=== PATIENT | male | born 1985 | race Caucasian/White ===

== ENCOUNTER 2017-11-04 20:44 | Emergency (ER) | payer OTHER ==
--- NOTE | 2017-11-04 20:50 | PDOC ---
Rapid Medical Evaluation Time Seen by Provider: 11/04/17 20:49 Medical Evaluation: 11/04/17 20:49 I have performed a brief in-person evaluation of this patient. The patient presents with a chief complaint of laceration to right thumb today. Patient reports cutting finger while opening a can today. td 15 years ago Pertinent physical exam findings: NAD even and unlabored breathing right thumb with laceration on palmar aspect of finger I have ordered the following: td ordered The patient will proceed to the Ed for further evaluation.
[2017-11-04] MEDS ORDERED: DIPHTH,PERTUSS(ACELL),TET 0.5 ML DISP.SYRIN IM ONE (20:51)
[2017-11-04 21:08] VITALS: BP 140/71; PULSE 74; TEMP 98.2; BMI 19.3
--- NOTE | 2017-11-04 22:15 | PDOC ---
History of Present Illness - General Chief Complaint: Injury Stated Complaint: LACERATION Time Seen by Provider: 11/04/17 20:49 History Source: Patient Exam Limitations: No Limitations - History of Present Illness Initial Comments: 11/04/17 21:43 HISTORY OF PRESENT ILLNESS: 31-year-old male without significant medical history who presents emergency Department with laceration to right thumb while opening up a can of tunafish today. Patient denies numbness or tingling to his thumb, difficulty moving finger or pain. Patient states he is right-hand dominant and works as a kitchen bath designer. Patient does not murmur in his last tetanus shot was but believes it was approximately 14 years ago. No recent travel or sick contacts. PAST MEDICAL HISTORY: Denies past medical history SURGICAL HISTORY: Denies ALLERGIES: No known drug allergies REVIEW OF SYSTEMS General/Constitutional: Denies fever or chills. Denies weakness, weight change. HEENT: Denies change in vision. Denies ear pain or discharge. Denies sore throat. Cardiovascular: Denies chest pain or shortness of breath. Respiratory: Denies cough, wheezing, or hemoptysis. Gastrointestinal: Denies nausea, vomiting, diarrhea or constipation. Denies rectal bleeding. Genitourinary: Denies dysuria, frequency, or change in urination. Musculoskeletal: Denies joint or muscle swelling or pain. Denies neck or back pain. Skin and breasts: Laceration to right thumb. Neurologic: Denies headache, vertigo, loss of consciousness, or loss of sensation. Psychiatric: Denies depression or anxiety. Endocrine: Denies increased thirst. Denies abnormal weight change. Hematologic/Lymphatic: Denies anemia, easy bleeding, or history of blood clots. Allergic/Immunologic: Denies hives or skin allergy. Denies latex allergy. PHYSICAL EXAM General Appearance: Well-appearing, appropriately dressed. No apparent distress , no intoxication. HEENT: EOMI, PERRLA, normal ENT inspection, normal voice, TMs normal, pharynx normal. No conjunctival pallor. No photophobia, scleral icterus. Neck: Supple. Trachea midline. No tenderness, rigidity, carotid bruit, stridor , lymphadenopathy, or thyromegaly. Respiratory/Chest: Lungs CTAB. No shortness of breath, chest tenderness, respiratory distress, accessory muscle use. No crackles, rales, rhonchi, stridor , wheezing, dullness Cardiovascular: RRR. S1, S2. No JVD, murmur, bradycardia, tachycardia. Vascular Pulses: Dorsalis-Pedis (R): 2+, Dorsalis-Pedis (L): 2+ Gastrointestinal/Abdominal: Normal bowel sounds. Abdomen soft, non-distended. No tenderness or rebound tenderness. No organomegaly, pulsatile mass, guarding, hernia, hepatomegaly, splenomegaly. Lymphatic: No adenopathy, tenderness. Musculoskeletal/Extremities: Normal inspection. FROM of all extremities, normal capillary refill. Pelvis Stable. No CVA tenderness. No tenderness to extremities, pedal edema, swelling, erythema or deformity. Integumentary: Appropriate color, dry, warm. No cyanosis, erythema, jaundice or rash. 2.7cm flap laceration to volar aspect of right thumb over distal phalanx. Bleeding controlled. Neurologic: dust mixer II-XII intact. Fully oriented, alert. Appropriate mood/affect. Motor strength 5/5. No appreciable EOM palsy, facial droop or sensory deficit. Past History - Past Medical History Allergies/Adverse Reactions: Allergies Allergy/AdvReac Type Severity Reaction Status Date / Time No Known Allergies Allergy Verified 11/04/17 20:51 Home Medications: Ambulatory Orders NK [No Known Home Medication] 11/04/17 COPD: No - Immunization History Td Vaccination: No - Suicide/Smoking/Psychosocial Hx Smoking History: Never smoked *Physical Exam - Vital Signs Last Vital Signs Temp Pulse Resp BP Pulse Ox 98.2 F 74 18 140/71 100 11/04/17 20:49 11/04/17 20:49 11/04/17 20:49 11/04/17 20:49 11/04/17 20:49 Procedures - Consent Consent obtained: Verbal, From Patient - Laceration/Wound Repair Right Volar Finger 1st digit Wound Length: 2.6 to 5.0 cm Wound Explored: clean Wound's Depth, Shape: flap Irrigated w/ Saline: Yes Betadine Prep: Yes Anesthesia: 1% Lidocaine Amount of Anesthetic (ccs): 4 Wound Debrided: minimal Wound Repaired With: Sutures Suture Size/Type: 5:0, nylon Number of Sutures: 5 Layer Closure: No Sterile Dressing Applied: Yes Splint Applied: No Sling Applied: No Progress: 11/04/17 22:16 Pt tolerated well ED Treatment Course - Medications Given in the ED: ED Medications Discontinued Medications Generic Name Dose Route Start Last Admin Trade Name Evangelista PRN Reason Stop Dose Admin Diphtheria/Tetanus/Acell Pertussis 0.5 ml 11/04/17 20:51 11/04/17 21:21 Boostrix - IM 11/04/17 20:52 0.5 ml .ONCE ONE Administration Medical Decision Making - Medical Decision Making 11/04/17 22:17 A/P: 31-year-old male with laceration sustained to the on the Patient is right-hand dominant Approximate 2.7 cm flap laceration present to the volar aspect of the right thumb over the distal phalanx No obvious tissue loss Full flexion and extension of IPJ against resistance Full sensation present distal to injury Cap refill <2 seconds Laceration repair- see procedure note for details Td D/c *DC/Admit/Observation/Transfer Diagnosis at time of Disposition: Laceration - Discharge Dispostion Disposition: HOME Condition at time of disposition: Stable Decision to Admit order: No - Referrals - Patient Instructions Printed Discharge Instructions: DI for Laceration Repair Additional Instructions: Keep wound clean and dry Avoid strenuous activity/exercise to create a hot or sweaty environment until sutures are removed Reapply bacitracin ointment 2 times a day until sutures are removed Return to emergency Department or private physician in 7-10 days for suture removal May use Tylenol or Motrin for pain relief Return immediately to emergency department for redness, swelling, pain, or signs of infection - Post Discharge Activity
== END 2017-11-04 22:23 | disposition home or self-care (01) ==
LOC: JERFT 20:44 → JER 20:44 → JERFT 22:23
PROC: 0HQFXZZ Repair Right Hand Skin, External Approach (ICD-10-PCS; principal; 2017-11-04)
DX: S61.011A Laceration without foreign body of right thumb without damage to nail, initial encounter (principal); X58.XXXA Exposure to other specified factors, initial encounter; Y93.89 Activity, other specified; Y92.9 Unspecified place or not applicable
CPT/HCPCS: 90715; 99281-25

== ENCOUNTER 2018-10-26 13:03 | Emergency (ER) | payer OTHER ==
--- NOTE | 2018-10-26 13:09 | PDOC ---
Rapid Medical Evaluation Time Seen by Provider: 10/26/18 13:06 Medical Evaluation: Allergies Allergy/AdvReac Type Severity Reaction Status Date / Time No Known Allergies Allergy Verified 11/04/17 20:51 10/26/18 13:07 I have performed a brief in-person evaluation of this patient. The patient presents with a chief complaint of:L ear pressure x 3 days, no sig hx Pertinent physical exam findings:stable and well flaquito, defer ENT exam to ED provider I have ordered the following:nothing The patient will proceed to the ED for further evaluation. Discharge Disposition - Diagnosis Ear pain, left - Referrals - Patient Instructions - Post Discharge Activity
[2018-10-26 13:12] VITALS: BP 140/84; PULSE 79; TEMP 98.7; BMI 21.9
--- NOTE | 2018-10-26 14:05 | PDOC ---
History of Present Illness - General Chief Complaint: Ear Problem Stated Complaint: EAR PROBLEM Time Seen by Provider: 10/26/18 13:06 History Source: Patient Exam Limitations: Clinical Condition - History of Present Illness Initial Comments: 10/26/18 14:05 Patient with no significant past medical history present with complaint of left ear pain and feeling of water in left ear after going to the beach over week ago. Patient reports symptoms started 3 days ago in left ear. Denies discharge from the ear. Denies fever, chills, decreased hearing or change in hearing. Denies any other symptoms Timing/Duration: other (3 days) Past History - Past Medical History Allergies/Adverse Reactions: Allergies Allergy/AdvReac Type Severity Reaction Status Date / Time No Known Allergies Allergy Verified 11/04/17 20:51 Home Medications: Ambulatory Orders Neomycin/Polymyxin B/Hydrocort [Uumtkzkj-Wseiiboau-Pe Ear Susp] 4 drop Q8H 5 Days #1 bottle 10/26/18 COPD: No - Immunization History Td Vaccination: No - Suicide/Smoking/Psychosocial Hx Smoking History: Former smoker Have you smoked in the past 12 months: No If you are a former smoker, when did you quit?: 1 year ago Information on smoking cessation initiated: No Review of Systems - Review of Systems Able to Perform ROS?: Yes Is the patient limited Cuban proficient: No Constitutional: No: Chills, Fever, Malaise HEENTM: Yes: Symptoms Reported, See HPI, Eye Pain (left ear pain). No: Blurred Vision, Tearing, Recent change in vision, Double Vision, Cataracts, Ear Pain, Ocular Prothesis, Ear Discharge, Nose Pain, Nose Congestion, Tinnitus, Nose Bleeding, Hearing Loss, Throat Pain, Throat Swelling, Mouth Pain, Dental Problems, Difficulty Swallowing, Mouth Swelling, Other Respiratory: No: Symptoms reported, See HPI, Cough, Orthopnea, Shortness of Breath, SOB with Exertion, SOB at Rest, Stridor, Wheezing, Productive cough, Hemoptysis, Other Cardiac (ROS): No: Symptoms Reported, See HPI, Chest Pain, Edema, Irregular Heart Rate, Lightheadedness, Palpitations, Syncope, Chest Tightness, Other ABD/GI: No: Nausea, Vomiting Musculoskeletal: No: Symptoms Reported Integumentary: No: Symptoms Reported Neurological: No: Symptoms reported, Headache, Weakness, Dizziness All Other Systems: Reviewed and Negative *Physical Exam - Vital Signs Last Vital Signs Temp Pulse Resp BP Pulse Ox 98.7 F 79 18 140/84 97 10/26/18 13:09 10/26/18 13:09 10/26/18 13:09 10/26/18 13:09 10/26/18 13:09 - Physical Exam Comments: 10/26/18 14:01 GENERAL: Well developed, well nourished. Awake and alert. No acute distress. HEENT: Mild erythema in left external ear canal with mild swelling in external left ear canal. Right ear canal normal. Tympanic membrane normal bilateral. Normocephalic, atraumatic. PERRLA, EOMI. No conjunctival pallor. Sclera are non- icteric. Moist mucous membranes. Oropharynx is clear. NECK: Supple. Full ROM. CARDIOVASCULAR: Regular rate and rhythm. No murmurs, rubs, or gallops. Distal pulses are 2+ and symmetric. PULMONARY: No evidence of respiratory distress. Lungs clear to auscultation bilaterally. No wheezing, rales or rhonchi. ABDOMINAL: Soft. Non-tender. Non-distended. No rebound or guarding. No organomegaly. Normoactive bowel sounds. MUSCULOSKELETAL Normal range of motion at all joints. SKIN: Warm and dry. Normal capillary refill. No rashes. NEUROLOGICAL: Alert, awake, appropriate. Gait is normal without ataxia. PSYCHIATRIC: Cooperative. Good eye contact. Appropriate mood General Appearance: Yes: Nourished, Appropriately Dressed. No: Apparent Distress Medical Decision Making - Medical Decision Making 10/26/18 14:06 Patient with no significant past medical history present with complaint of left ear pain and feeling of water in left ear after going to the beach over week ago. Patient reports symptoms started 3 days ago in left ear. Denies discharge from the ear. Denies fever, chills, decreased hearing or change in hearing. Denies any other symptoms Exam significant for mild swelling to left external ear canal with mild erythema in external left ear canal. Right ear canal normal. Tympanic membrane normal bilateral. Patient is stable for outpatient management with neomycin with polymycin ear drops for otitis externa with ENT follow-up as needed *DC/Admit/Observation/Transfer Diagnosis at time of Disposition: Ear pain, left Left otitis externa Qualifiers: Otitis externa type: unspecified type Chronicity: acute Qualified Code(s): H60.502 - Unspecified acute noninfective otitis externa, left ear - Discharge Dispostion Disposition: HOME Condition at time of disposition: Stable Decision to Admit order: No - Prescriptions Prescriptions: Neomycin/Polymyxin B/Hydrocort [Sodumbkb-Bbishiqyu-Xr Ear Susp] 4 drop Q8H 5 Days #1 bottle - Referrals Referrals: Domingo Santiago MD [Staff Physician] - - Patient Instructions Printed Discharge Instructions: DI for Otitis Externa Additional Instructions: Use ear drops as prescribed. Take motrin as needed for pain. Follow-up with referred ENT if no improvement in 4 days - Post Discharge Activity
== END 2018-10-26 14:07 | disposition home or self-care (01) ==
LOC: JERFT 13:03
DX: H92.02 Otalgia, left ear (principal); H60.502 Unspecified acute noninfective otitis externa, left ear; Z87.891 Personal history of nicotine dependence
CPT/HCPCS: 99281-25

== ENCOUNTER 2018-12-03 16:15 | Emergency (ER) | payer OTHER ==
[2018-12-03 16:27] VITALS: BP 131/71; PULSE 81; TEMP 98.8; BMI 23.7
[2018-12-03] MEDS ORDERED: LACTATED RINGERS SOLUTION 1000 ML INFUS.BAG IV ONE (16:53)
[2018-12-03] MEDS ORDERED: ACETAMINOPHEN 1000 MG/100 ML VIAL (NON FORMULARY) IVPB ONE (16:53)
--- NOTE | 2018-12-03 16:54 | PDOC ---
History of Present Illness - General Chief Complaint: Pain Stated Complaint: LOWER ABDOMINAL PAIN Time Seen by Provider: 12/03/18 16:52 History Source: Patient - History of Present Illness Initial Comments: 12/03/18 17:35 Mr. Child is a 32 y/o man with hx spontaneous pneumothorax presenting with four days of acutely worsening RLQ abdominal pain that has been intermittent for approx 20 days. He reports that the pain has been present for approx 20 days , but that he noted it worsening over the last few days with activity. He reports increased pain, described as an ache localized to his RLQ/upper groin, worsened with activity and while hitting bumps in the road in his car. He reports that his mother had an appendicitis in the past and was concerned given his pain in a similar location. He reports that he does not typically go to the doctor and does not have a primary care provider. He denies any pain at rest. He reports 2 episodes of vomiting one week ago, no nausea or vomiting in the last 4 days. He denies any fevers, chills, changes in appetite, fatigue, night sweats, weakness. Past History - Past Medical History Allergies/Adverse Reactions: Allergies Allergy/AdvReac Type Severity Reaction Status Date / Time No Known Allergies Allergy Verified 12/03/18 16:20 Home Medications: Ambulatory Orders Neomycin/Polymyxin B/Hydrocort [Ltucmmox-Snxrnhaku-Xr Ear Susp] 4 drop Q8H 5 Days #1 bottle 10/26/18 COPD: No - Immunization History Td Vaccination: No - Psycho Social/Smoking Cessation Hx Smoking History: Never smoked Have you smoked in the past 12 months: No If you are a former smoker, when did you quit?: 2017 Information on smoking cessation initiated: No Hx Alcohol Use: No Drug/Substance Use Hx: No Review of Systems - Review of Systems Able to Perform ROS?: Yes Comments:: 12/03/18 18:44 ROS: GENERAL/CONSTITUTIONAL: No fever or chills. No weakness. HEAD, EYES, EARS, NOSE AND THROAT: No change in vision. No ear pain or discharge. No sore throat. CARDIOVASCULAR: No chest pain or shortness of breath RESPIRATORY: No cough, wheezing, or hemoptysis. GASTROINTESTINAL: RLQ abdominal pain. Groin pain. Vomiting. No nausea, change in appetite, diarrhea, or constipation. GENITOURINARY: No dysuria, frequency, or change in urination. MUSCULOSKELETAL: No joint or muscle swelling or pain. No neck or back pain. SKIN: No rash NEUROLOGIC: No headache, vertigo, loss of consciousness, or change in strength/ sensation. ENDOCRINE: No increased thirst. No abnormal weight change HEMATOLOGIC/LYMPHATIC: No anemia, easy bleeding, or history of blood clots. ALLERGIC/IMMUNOLOGIC: No hives or skin allergy. *Physical Exam - Vital Signs Last Vital Signs Temp Pulse Resp BP Pulse Ox 98.8 F 81 18 131/71 99 12/03/18 16:15 12/03/18 16:15 12/03/18 16:15 12/03/18 16:15 12/03/18 16:15 - Physical Exam Comments: 12/03/18 18:46 PE: GENERAL: Awake, alert, and fully oriented, in no acute distress HEAD: No signs of trauma, normocephalic, atraumatic EYES: PERRLA, EOMI, sclera anicteric, conjunctiva clear ENT: Auricles normal inspection, hearing grossly normal, nares patent, oropharynx clear without exudates. Moist mucosa NECK: Normal ROM, supple, no lymphadenopathy, JVD, or masses LUNGS: No distress, speaks full sentences, clear to auscultation bilaterally HEART: Regular rate and rhythm, normal S1 and S2, no murmurs, rubs or gallops, peripheral pulses normal and equal bilaterally. ABDOMEN: Mild tenderness to deep palpation of RLQ. No hernias noted. Otherwise: Soft, nontender, normoactive bowel sounds. No guarding, no rebound. No masses TESTICULAR: Normal cremasteric reflex, no testicular tenderness, normal lay, no rash or lesions visualized EXTREMITIES : Normal inspection, Normal range of motion, no edema. No clubbing or cyanosis NEUROLOGICAL: Cranial nerves II through XII grossly intact. Normal speech, normal gait, no focal sensorimotor deficits SKIN: Warm, Dry, normal turgor, no rashes or lesions noted ED Treatment Course - LABORATORY CBC & Chemistry Diagram: 12/03/18 17:05 12/03/18 17:05 Medical Decision Making - Medical Decision Making 12/03/18 17:50 32M with hx spontaneous pneumothorax p/w worsening of RLQ/upper groin abdominal pain, normal testicular exam, x2 episodes vomiting last week, concerning for appendicitis. Differential also includes small inguinal hernia. Plan: CBC CMP UA Urine culture 1L IV NS CT Abdomen/pelvis with contrast Dispo: Pending labs, imaging --- CBC, CMP - wnl UA - negative Given normal Cr, plan for CT abdomen pelvis. Bedside appendix ultrasound study completed, no wall thickening noted, appendix compressible without pain, blind pouch visualized. 12/03/18 20:21 CT abdomen pelvis negative for acute process. No appendicitis, diverticulitis, or hernia noted. Plan for discharge home. He does not have a PCP at this time, referral placed to [facility] for follow up. Discharge - Discharge Information Problems reviewed: Yes Clinical Impression/Diagnosis: Musculoskeletal pain Condition: Stable Disposition: HOME - Admission No - Follow up/Referral Referrals: [facility] [Provider Group] - Patient Discharge Instructions Patient Printed Discharge Instructions: DI for Musculoskeletal Pain Additional Instructions: You were seen in the emergency department for lower abdominal pain. We checked your bloodwork and urine which returned normal. Your CT scan of your abdomen was also negative. Please follow up with your primary care as soon as possible, in the next seven days. We are giving you a referral to the [facility] where you can establish care with a primary care provider. Please return to the emergency department if you develop high fevers, chills, nausea and vomiting, or abdominal pain that does not resolve with over the counter medication. - Post Discharge Activity
[2018-12-03] MEDS ORDERED: ACETAMINOPHEN INJECTION 100 ML IVPB ONE (16:56)
[2018-12-03 17:24] LABS: BASO % 0.3 % (0-2.0); EOS % 2.7 % (0-4.5); HEMATOCRIT 44.8 % (35.4-49); HEMOGLOBIN 15.1 GM/dL (11.7-16.9); LYMPH % 23.1 % (8-40); MCH 29.1 pg (25.7-33.7); MCHC 33.7 g/dl (32.0-35.9); MEAN CELL VOLUME 86.2 fl (80-96); MEAN PLT VOLUME 8.1 fl (7.5-11.1); MONO % 7.1 % (3.8-10.2); NEUT % 66.8 % (42.8-82.8); PLATELET COUNT 290 K/MM3 (134-434); RBC 5.19 M/mm3 (4.00-5.60); RDW 13.1 % (11.9-15.9); WHITE BLOOD COUNT 5.4 K/mm3 (4.0-10.0)
[2018-12-03 17:29] LABS: URINE APPEARANCE Clear; URINE BILIRUBIN Negative (NEGATIVE); URINE COLOR Yellow; URINE GLUCOSE (UA) Negative (NEGATIVE); URINE KETONE Negative (NEGATIVE); URINE LEUK ESTERASE Negative (NEGATIVE); URINE NITRITE Negative (NEGATIVE); URINE PROTEIN Negative (NEGATIVE); URINE UROBILINOGEN 0.2 mg/dL (0.2-1.0)
[2018-12-03 17:45] LABS: ALBUMIN 4.6 g/dl (3.4-5.0); BILIRUBIN,TOTAL 0.7 mg/dL (0.2-1); BLOOD UREA NITROGEN 9.1 mg/dL (7-18); CALCIUM 9.4 mg/dL (8.5-10.1); CREATININE 0.8 mg/dL (0.55-1.3); TOT PROT 7.7 g/dl (6.4-8.2)
--- NOTE | 2018-12-03 18:23 | PDOC ---
Attending Attestation - Resident Resident Name: Juleeluis alfredonancieMihai - ED Attending Attestation I have performed the following: I have examined & evaluated the patient, The case was reviewed & discussed with the resident, I agree w/resident's findings & plan - HPI HPI: 12/03/18 18:24 32 YOM with h/o PTX presenting with RLQ/groin pain x 4 days, worse with movement , which he noticed more yesterday while playing with kids. He has been constipated x 2-3 weeks, now more BMs x 2 days and normalized since he has drank more water. No n/v/d, f/c, cough/congestion, cp or sob. No leg swelling, back /flank pain. - Physicial Exam PE: 12/03/18 18:17 Agree with the resident's HPI and PE as documented in the electronic medical record. NAD, well appearing, EOMI, PERRL, MMM, nl conjunctiva, anicteric; neck supple. lungs clear, RRR, abdomen soft nontender. normal external genitalia, right groin TTP, no rebound or guarding. normal testicular lie, no tenderness or swelling. Back nontender. GILLIAM x4, no focal neuro deficits. No peripheral edema. normal color for ethnicity, WWP. - Medical Decision Making 12/03/18 18:24 Vital Signs Temp Pulse Resp BP Pulse Ox 98.8 F 81 18 131/71 99 12/03/18 16:15 12/03/18 16:15 12/03/18 16:15 12/03/18 16:15 12/03/18 16:15 vitals reviewed, wnl no fever/systemic findings DDx abdominal pain: Renal colic, biliary colic, metabolic/electrolyte derangements. GERD, PUD, esophageal spasm, pancreatitis, hepatitis, constipation , colitis, gastroenteritis, cholecystitis, UTI, pyelonephritis, ileus, SBO, medication side effect, hernia, appendicitis, diverticulitis, mesenteric ischemia. msk strain, mesenteric adenitis, psoas abscess. bedside sono, normal appx, no blind ended tube with dilation or lack of compressibility. gaseous cecum seen labs and lytes wnl, reassuring LFTS mildly elevated, normal lipase neg UA for infection/ketones/blood given analgesia, IVF CT a/p to eval for inguinal hernia vs intra abdominal process/infection/ inflammation given duration and sx. neg for acute process. no hernia, no appy discharge stable condition, return precautions, PCP followup otc analgesia, possibly msk strain in the groin. 12/03/18 20:31
[2018-12-03 18:57] LABS: URINE BACTERIA FEW /hpf (NEGATIVE); URINE RBC 0-3 /hpf (0-4); URINE WBC 0-3 /hpf (0-5)
== END 2018-12-03 20:38 | disposition home or self-care (01) ==
LOC: JER 16:15
PROC: 3E033NZ Introduction of Analgesics, Hypnotics, Sedatives into Peripheral Vein, Percutaneous Approach (ICD-10-PCS; principal; 2018-12-03)
DX: M79.18 Myalgia, other site (principal); R10.31 Right lower quadrant pain
CPT/HCPCS: 36415; 74177-TC; 80053; 81003; 83690; 85025; 87086; 96374; 99283-25; J0131